=== PATIENT | female | born 1965 | race Caucasian/White ===

== ENCOUNTER 2020-06-21 07:37 | Emergency (ER) | payer MEDICARE, OTHER ==
[2020-06-21] MEDS ORDERED: SODIUM CHLORIDE 0.9% 1,000 ML IV STA (08:18)
[2020-06-21] MEDS ORDERED: KETOROLAC 30 MG/ML VIAL IVP STA (08:18)
--- NOTE | 2020-06-21 08:21 | ED Physician Documentation ---
PD HPI ABD PAIN - Stated complaint Stated Complaint: ABD PX - Chief complaint Chief Complaint: Abd Pain - History obtained from History obtained from: Patient, Family - History of Present Illness Timing - onset: Enter time, Today Timing - duration: Hours Timing - details: Abrupt onset, Still present Quality: Sharp, Pain Location: Other (midline from the xyphoid to the pubic symphysis) Radiation: . No: Chest Improved by: Other (nothing) Worsened by: Other (nothing) Associated symptoms: Nausea. No: Fever, Vomiting, Diarrhea, Constipation Similar symptoms before: Diagnosis (kidney stone) Recently seen: Not recently seen - Additional information Additional information: 54-year-old female with a prior history of kidney stone has awoken this morning with a sharp pain from her xiphoid down to her pubic symphysis and she has some nausea and there are no modifying factors for this pain. She is not able to make it worse or better. She states she was well prior to this and she has not had urinary symptoms and she is not having other symptoms of illness. She states the pain is severe it is a 9 out of 10. Review of Systems Constitutional: denies: Fever, Chills, Myalgias Eyes: denies: Decreased vision Ears: denies: Ear pain Nose: denies: Congestion Throat: denies: Sore throat Cardiac: denies: Chest pain / pressure, Palpitations Respiratory: denies: Dyspnea, Cough GI: reports: Abdominal Pain, Nausea. denies: Vomiting, Constipation, Diarrhea : denies: Dysuria, Frequency Skin: denies: Rash Musculoskeletal: denies: Neck pain, Back pain, Extremity pain Neurologic: denies: Generalized weakness, Focal weakness, Numbness PD PAST MEDICAL HISTORY - Present Medications Home Medications: Ambulatory Orders Medication Instructions Recorded Confirmed Celecoxib 06/21/20 Eszopiclone 06/21/20 Hydrocodone/Acetaminophen 1 - 2 each PO Q6H PRN #14 tablet 06/21/20 [Hydrocodone-Acetamin 5-325 mg] Metformin HCl [Fortamet] 06/21/20 Metoprolol Succinate [Toprol Xl] 06/21/20 Nortriptyline HCl 06/21/20 Omeprazole 06/21/20 Rosuvastatin Calcium 06/21/20 06/21/20 Sulfamethoxazole/Trimethoprim 1 each PO BID #14 tablet 10/07/20 [Sulfamethoxazole-Tmp Ds Tablet] - Allergies Allergies/Adverse Reactions: Allergies Allergy/AdvReac Type Severity Reaction Status Date / Time promethazine [From Phenergan] Allergy Unknown Verified 06/21/20 07:55 PD ED PE NORMAL - Vitals Vital signs reviewed: Yes (Hypertensive mild) - General General: Alert and oriented X 3, No acute distress, Well developed/nourished - HEENT HEENT: Atraumatic, PERRL, EOMI - Neck Neck: Supple, no meningeal sign, No bony TTP - Cardiac Cardiac: RRR, No murmur - Respiratory Respiratory: No respiratory distress, Clear bilaterally - Abdomen Abdomen: Normal bowel sounds, Soft, Non tender, Non distended, No organomegaly - Back Back: No CVA TTP, No spinal TTP - Derm Derm: Normal color, Warm and dry, No rash - Extremities Extremities: No deformity, No tenderness to palpate, Normal ROM s pain, No edema, No calf tenderness / cord - Neuro Neuro: Alert and oriented X 3, 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, No motor deficit, No sensory deficit, Normal speech Eye Opening: Spontaneous Motor: Obeys Commands Verbal: Oriented GCS Score: 15 - Psych Psych: Normal mood, Normal affect Results - Vitals Vitals: Vital Signs - 24 hr 06/21/20 06/21/20 06/21/20 07:46 07:54 09:54 Temperature 36.6 C 36.7 C 36.6 C Heart Rate 75 81 95 Respiratory 16 18 16 Rate Blood Pressure 134/70 H 144/79 H 123/76 O2 Saturation 97 100 95 06/21/20 06/21/20 11:00 13:00 Temperature 36.6 C 36.6 C Heart Rate 89 96 Respiratory 16 16 Rate Blood Pressure 118/72 124/78 O2 Saturation 96 97 Oxygen O2 Source Room air - Labs Labs: Laboratory Tests 06/21/20 06/21/20 06/21/20 07:58 08:08 08:08 WBC 12.7 H RBC 4.84 Hgb 14.0 Hct 43.1 MCV 89.0 MCH 28.9 MCHC 32.5 RDW 13.0 Plt Count 205 MPV 9.6 Neut # (Auto) 10.4 H Lymph # (Auto) 1.4 L [place] # (Auto) 0.6 Eos # (Auto) 0.3 Baso # (Auto) 0.1 Absolute Nucleated RBC 0.00 Nucleated RBC % 0.0 Sodium 139 Potassium 3.8 Chloride 105 Carbon Dioxide 25 Anion Gap 9.0 BUN 21 H Creatinine 0.9 Estimated GFR (MDRD) 65 L Glucose 123 H Calcium 9.2 Total Bilirubin 0.4 AST 23 ALT 12 Alkaline Phosphatase 95 Total Protein 7.9 Albumin 4.6 Globulin 3.3 Albumin/Globulin Ratio 1.4 Lipase 58 H Urine Color YELLOW Urine Clarity CLOUDY Urine pH 5.5 Ur Specific [place] 1.025 Urine Protein 30 H Urine Glucose (UA) NEGATIVE Urine Ketones NEGATIVE Urine Occult Blood LARGE H Urine Nitrite POSITIVE H Urine Bilirubin NEGATIVE Urine Urobilinogen 0.2 (NORMAL) Ur Leukocyte Esterase SMALL H Urine RBC 11-25 H Urine WBC >25 H Urine WBC Clumps PRESENT Ur Squamous Epith Cells FEW Squamous Urine Bacteria Moderate H Ur Microscopic Review INDICATED Urine Culture Comments INDICATED - Rads (name of study) CT ab/pel Radiology: Prelim report reviewed (Impression: 1. A 6 mm ureteral calculus is seen in the left mid ureter with proximal mild hydrourteronephrosis and mild perinephric and periureteral fat stranding.), Final report received (2. Nonobstructing 2 mm calculus in the inferior pole of the left kidney.), EMP read indepedently, See rad report Procedures - Bedside sono Bedside sono by EMP: With use of bedside ultrasound the left kidney is imaged and there is obvious hydronephrosis and the kidney is sonographically nontender. The right kidney is similarly imaged there is minimal hydro-on the right and that kidney is also sonographically nontender. At the time of this examination there is no urine in the bladder and I am not able to make any sense of the imaged there. PD MEDICAL DECISION MAKING - ED course Complexity details: reviewed old records, reviewed results, re-evaluated patient, considered differential, d/w patient, d/w family ED course: 54-year-old female presents with symptoms consistent with kidney stone with exception of the pain being midline. On ultrasound evaluation she does have marked hydronephrosis on the left side and her history is otherwise consistent with kidney stone and she is administered a liter of saline and 30 mg of Toradol. Today our CAT scanner is down until noon. I will have the patient fill her bladder with the saline and we will check for urinary jets. I suspect this is kidney stone based mostly on history and exam but I have cautioned the patient that there are other things that can cause hydronephrosis and pain. Today we were able to perform of the CAT scan and there is a 6 mm stone in the mid left ureter causing hydro-and with fat stranding around the ureter. She does have urinary tract infection and the urologist Dr. Cardozo is consulted in the case and recommends the patient follow-up with her today and provide antibiotic coverage. The patient does have improvement in her pain with use of Dilaudid and Zofran and she is administered Rocephin intravenously and a prescription for Septra is provided. Departure - Departure Disposition: Home, Self Care Clinical Impression: Ureterolithiasis Urinary tract infection Qualifiers: Urinary tract infection type: acute cystitis Hematuria presence: with hematuria Qualified Code(s): N30.01 - Acute cystitis with hematuria Instructions: ED Stone Renal W Colic Follow-Up: Vivi Recinos MD [Primary Care Provider] - Yesenia Cardozo MD [Physician No Access] - Prescriptions: Hydrocodone/Acetaminophen [Hydrocodone-Acetamin 5-325 mg] 1 - 2 each PO Q6H PRN #14 tablet PRN Reason: Pain Sulfamethoxazole/Trimethoprim [Sulfamethoxazole-Tmp Ds Tablet] 1 each PO BID #14 tablet Discharge Date/Time: 06/21/20 13:06
[2020-06-21 08:22] LABS: BASOPHILS # (AUTO) 0.1 10^3/uL (0.0-0.1); BASOPHILS % (AUTO) 0.6 %; EOSINOPHILS # (AUTO) 0.3 10^3/uL (0.0-0.7); EOSINOPHILS % (AUTO) 2.2 %; LYMPHOCYTES # (AUTO) 1.4 10^3/uL (1.5-3.5); LYMPHOCYTES % (AUTO) 10.7 %; MEAN CORPUSCULAR HEMOGLOBIN 28.9 pg (27.0-31.0); MEAN CORPUSCULAR HGB CONC 32.5 g/dL (32.0-36.0); MEAN PLATELET VOLUME 9.6 fL (7.9-10.8); MONOCYTES # (AUTO) 0.6 10^3/uL (0.0-1.0); MONOCYTES % (AUTO) 4.4 %; NEUTROPHILS # (AUTO) 10.4 10^3/uL (1.5-6.6); NEUTROPHILS % (AUTO) 81.6 %; PLT - PLATELET COUNT 205 10^3/uL (130-450); RED BLOOD COUNT 4.84 10^6/uL (4.20-5.40); WHITE BLOOD COUNT 12.7 x10^3/uL (4.8-10.8)
[2020-06-21 08:23] LABS: BILIRUBIN,URINE NEGATIVE (NEGATIVE); CLARITY,URINE CLOUDY (CLEAR); GLUCOSE, URINE (UA) NEGATIVE (NEGATIVE); KETONES,URINE (UA) NEGATIVE (NEGATIVE); LEUKOCYTE ESTERASE, URINE SMALL (NEGATIVE); NITRITE,URINE POSITIVE (NEGATIVE); OCCULT BLOOD,URINE LARGE (NEGATIVE); PH,URINE 5.5 PH (5.0-7.5); PROTEIN,URINE 30 mg/dL (NEGATIVE); UROBILINOGEN,URINE 0.2 (NORMAL) E.U./dL (NORMAL)
[2020-06-21 08:31] LABS: BACTERIA,URINE Moderate /HPF (None Seen); SQUAMOUS EPITHELIAL CELL,UR FEW Squamous (<= Few); WBC CLUMPS,URINE PRESENT
[2020-06-21 08:36] LABS: ALBUMIN 4.6 g/dL (3.2-5.5); ALBUMIN/GLOBULIN RATIO 1.4 (1.0-2.2); BILIRUBIN,TOTAL 0.4 mg/dL (0.2-1.0); CALCIUM 9.2 mg/dL (8.5-10.3); CREATININE 0.9 mg/dL (0.4-1.0); TOTAL PROTEIN 7.9 g/dL (6.7-8.2)
[2020-06-21] MEDS ORDERED: cefTRIAXone 1 GM in SODIUM CHLORIDE 0.9% MINIBAG 100 ML IV STA (08:55)
[2020-06-21] MEDS ORDERED: HYDROmorphone 1 MG/ML CARPUJECT IVP STA (09:27)
[2020-06-21] MEDS ORDERED: ONDANSETRON 4 MG/2 ML VIAL IVP STA (09:27)
--- NOTE | 2020-06-21 12:04 | CT Report ---
PROCEDURE: Abdomen/Pelvis WO INDICATIONS: abdominal pain hydro on left TECHNIQUE: Noncontrast 5 mm thick sections acquired from the diaphragms to the symphysis. 5 mm coronal and sagi ttal reformats were then performed. For radiation dose reduction, the following was used: automated exposure control, adjustment of mA and/or kV according to patient size. COMPARISON: None. FINDINGS: Image quality: Excellent. ABDOMEN: Lung bases: There is mild dependent atelectasis in the lung bases. Heart size is normal. Solid organs: A low-density lesion in hepatic segment 4A is most likely a hemangioma or hepatic cyst . Status post cholecystectomy. Pancreas is normal in contours. Spleen is normal in size. No adrenal nodules. A 6 mm calculus is seen in the left mid ureter with mild proximal hydroureteronephrosis and perinephric and periureteral fat stranding. An additional 2 mm calculus is seen in the inferior pole of the left kidney. The right kidney appears normal without hydronephrosis. Peritoneum and bowel: Unenhanced bowel loops demonstrate normal wall thickness and caliber. No free fluid or air. Nodes and vessels: No retroperitoneal or mesenteric adenopathy by size criteria. Aorta and inferior vena cava are normal in caliber. Moderate atherosclerotic calcifications are seen in the aorta. Miscellaneous: No ventral hernias. PELVIS: Genitourinary: Bladder wall thickness is normal. Status post hysterectomy. Miscellaneous: No inguinal hernias or adenopathy. Bones: No suspicious bony lesions. No vertebral body compression fractures. Focal degenerative winnie nges are seen at the lumbosacral junction. IMPRESSION: 1. A 6 mm ureteral calculus is seen in the left mid ureter with proximal mild hydroureteronephrosis and mild perinephric and periureteral fat stranding. 2. Nonobstructing 2 mm calculus in the inferior pole of the left kidney. Reviewed by: Parker Alston MD on 06/21/2020 12:03 PM PDT Approved by: Parker Alston MD on 06/21/2020 12:03 PM PDT Station ID: [id number]
[2020-06-21 13:01] VITALS: BP 124/78
== END 2020-06-21 13:06 | disposition home or self-care (01) ==
LOC: ED 07:37
DX: N13.2 Hydronephrosis with renal and ureteral calculous obstruction (principal); N30.01 Acute cystitis with hematuria
CPT/HCPCS: 36415; 74176; 80053; 81001; 83690; 85025; 87086; 87181; 96365; 96375; 99284; 99285; J1170; 81003